=== PATIENT | female | born 1975 | race Two or more races ===

== ENCOUNTER 2017-11-14 08:57 | Outpatient (CLI) | payer OTHER | END 2017-11-14 09:14 | disposition home or self-care (01) | LOC: RAD 501 08:57 | DX: M54.5 Low back pain (principal) ==

== ENCOUNTER → 2018-10-10 08:18 | Outpatient (CLI) | payer OTHER | END | disposition home or self-care (01) | LOC: EKG 08:18 | DX: I10 Essential (primary) hypertension (principal) ==

== ENCOUNTER 2018-10-30 11:55 | Day surgery (SDC) | payer OTHER ==
[~2018-10-30 11:55] MED LIST: OMEPRAZOLE10 MG PO; PERCOCET 10-321 EACH PO; TYLENOL325 MG PO; ZYRTEC10 M3 PO
== END 2018-10-30 17:35 | disposition home or self-care (01) ==
LOC: CIR.AMB 11:55
DX: M13.811 Other specified arthritis, right shoulder (principal); M85.611 Other cyst of bone, right shoulder; M65.811 Other synovitis and tenosynovitis, right shoulder

== ENCOUNTER 2021-11-28 15:58 | Emergency (ER) | payer OTHER ==
[~2021-11-28] VITALS: Ht 154.9 cm; Wt 88.5 kg
[2021-11-28] MEDS ORDERED: KETO10TA2 PO (19:51)
== END 2021-11-28 20:57 | disposition home or self-care (01) ==
LOC: ER 15:58
DX: N64.4 Mastodynia (principal); Z91.012 Allergy to eggs; Z91.013 Allergy to seafood

== ENCOUNTER 2021-11-29 14:36 | Outpatient (CLI) | payer OTHER ==
[~2021-11-29 14:36] MED LIST changes: +KETO10TA2 PO
== END 2021-11-29 14:51 | disposition home or self-care (01) ==
LOC: MAMO-SONO 14:36
PROVIDERS: ATTEND Obstetrics & Gynecology
DX: N60.39 Fibrosclerosis of unspecified breast (principal); Z12.31 Encounter for screening mammogram for malignant neoplasm of breast

== ENCOUNTER 2024-11-26 06:00 | Day surgery (SDC) | payer OTHER ==
[2024-11-18 10:57] LABS: PH,URINE 6.5 (5.0-8.0); URINE APPEARANCE Cloudy; URINE BILIRRUBIN Negative (NEGATIVE); URINE BLOOD Negative; URINE COLOR Yellow; URINE GLUCOSE Negative (NEGATIVE); URINE KETONE Negative (NEGATIVE); URINE LEUKOCYTE Trace; URINE NITRATE Negative; URINE PROTEIN Negative (NEGATIVE); URINE UROBILINOGEN 0.2 E.U./dl
[2024-11-18 11:04] LABS: URINE BACTERIA 5023.2 uL (0.0-1933); URINE EPITHELIAL CELLS 102.7 uL (0.0-38.8); URINE RBC 18.2 uL (0.0-20.8); URINE WBC 94.9 uL (0.0-23.2)
[2024-11-18 11:09] VITALS: BP 124/90
[2024-11-18 11:10] LABS: BASO % 0.5 % (0.1-1.2); EOS # 0.21 (0.04-0.54); EOS % 3.2 % (0.7-7.0); HEMATOCRIT 35.8 % (34.1-44.9); HEMOGLOBIN 11.6 g/dL (11.2-15.7); LYMPH # 1.38 (1.18-3.74); LYMPH % 20.8 % (19.3-53.1); MEAN CORPUSCULAR HEMOGLOBIN 28.4 pg (25.6-32.2); MONO # 0.47 (0.24-0.82); MONO % 7.1 % (4.7-12.5); NEUT # 4.48 (1.56-6.13); NEUT % 67.3 % (34.0-71.1); PLATELET COUNT 370 K/uL (163-369); RED BLOOD COUNT 4.08 M/uL (3.93-5.22)
[2024-11-18 11:22] LABS: URINE CAST 0.29 uL (0.0-1.40)
[2024-11-18 11:24] LABS: URINE CRYSTALS FEW /HPF
[2024-11-18 11:40] LABS: INR 0.97; PARTIAL THROMBOPLASTIN TIME 29.9 SECONDS (22.0-34.0); PROTHROMBIN TIME 10.6 SECONDS (9.0-11.5)
[2024-11-18 12:11] LABS: ALBUMIN 3.5 gm/dL (3.4-5.0); BILIRUBIN TOTAL 0.36 mg/dL (0.3-1.2); CALCIUM 8.9 mg/dL (8.5-10.1); CREATININE SERUM 0.74 mg/dL (0.55-1.02); GFR 83.76; GLOBULINA 3.7 G/DL (2.4-3.5); POTASSIUM 4.34 mEq/L (3.5-5.1); TOTAL PROTEIN 7.2 gm/dL (6.4-8.2)
[~2024-11-26] VITALS: Ht 154.9 cm; Wt 95.3 kg
[~2024-11-26 06:00] MED LIST changes: +OXYMETAZOLINE
[2024-11-26] MEDS ORDERED: BUPIVACAINE HCL/MPF 0.5% 30ML VIAL ONE (07:12)
[2024-11-26] MEDS ORDERED: LIDOCAINE HCL 1%/EPINEPHRINE 20ML VIAL IJ ONE (07:12)
[2024-11-26] MEDS ORDERED: CEFAZOLIN SODIUM 1,000 MG VIAL ONE (07:12)
[2024-11-26] MEDS ORDERED: KETOROLAC TROMETHAMINE 60 MG VIAL IM ONE ×2 (07:38→11:15)
[2024-11-26] MEDS ORDERED: SUGAMMADEX SODIUM 200 MG/2 ML VIAL IV ONE (09:16)
== END 2024-11-26 12:15 | disposition home or self-care (01) ==
LOC: CIR.AMB 06:00
PROVIDERS: ATTEND Orthopaedic Surgery
DX: M75.42 Impingement syndrome of left shoulder (principal); T84.84XA Pain due to internal orthopedic prosthetic devices, implants and grafts, initial encounter; M24.112 Other articular cartilage disorders, left shoulder; M75.122 Complete rotator cuff tear or rupture of left shoulder, not specified as traumatic; M75.22 Bicipital tendinitis, left shoulder; Z91.012 Allergy to eggs; Z91.013 Allergy to seafood